=== PATIENT | female | born 1965 | race Caucasian/White ===

== ENCOUNTER 2023-09-19 10:18 | Outpatient (REF) | payer OTHER, SELFPAY ==
--- NOTE | 2023-09-19 10:22 | EMG_ITS ---
Chief complaint: At least 6 months of right foot numbness, feeling of sleeping right foot when walking. She also has back pain. Reason for referral: Evaluate for neuropathy Referred by: Dr. Romel Brown Procedure done: Right lower extremity NCS/EMG Precautions and/or limitations: None The limb temperature was monitored continuously and remained between 32-36 degrees C during the performance of the NCS. Nerve Conduction Studies Anti Sensory Summary Table ?Stim Site NR Onset (ms) Norm Onset (ms) Peak (ms) Norm Peak (ms) O-P Amp (?V) Norm O-P Amp Site1 Site2 Delta-0 (ms) Dist (cm) César (m/s) Norm César (m/s) Right Sup Peron Anti Sensory (Ankle) Lateral Leg ? 2.1 3.0 <4.4 0.5 >5.0 Lateral Leg Ankle 2.1 14.0 67 Right Sural Anti Sensory (Lat Mall) Calf ? 1.4 2.0 11.7 Motor Summary Table ?Stim Site NR Onset (ms) Norm Onset (ms) O-P Amp (mV) Norm O-P Amp iAmp (mV) Amp (1st) (%) Site1 Site2 Delta-0 (ms) Dist (cm) César (m/s) Norm César (m/s) Right Peroneal Motor (Ext Dig Brev) Ankle ? 3.9 <4.0 7.1 >2.5 9.3 100.0 Ankle Ext Dig Brev 3.9 0.0 B Fib ? 9.9 6.7 8.4 94.4 B Fib Ankle 6.0 31.0 52 >40 Poplt ? 10.4 7.0 10.5 98.6 Poplt B Fib 0.5 4.5 90 >40 Right Tibial Motor (Abd Brev) Ankle ? 3.3 <5 2.7 >2.5 3.8 100.0 Ankle Abd Brev 3.3 0.0 Knee ? 9.8 2.2 3.2 81.5 Knee Ankle 6.5 37.0 57 >40 EMG ?Side Muscle Nerve Root Ins Act Fibs Psw Amp Dur Poly Recrt Int Pat Comment Right AbdHallucis MedPlantar S1-2 Nml Nml Nml Nml Nml 0 Nml Complete Right AntTibialis Dp Br Peron L4-5 Nml Nml Nml Nml Nml 0 Nml Complete Right PostTibialis Tibial L5, S1 Nml Nml Nml Nml Nml 0 Nml Complete Right MedGastroc Tibial S1-2 Nml Nml Nml Nml Nml 0 Nml Complete Right VastusMed Femoral L2-4 Nml Nml Nml Nml Nml 0 Nml Complete FINDINGS: Right superficial peroneal nerve showed small amplitude. Right peroneal motor nerve did not show slowing or conduction block across the fibula neck. Concentric needle EMG was performed in selected muscles of the right lower extremity. Study did not reveal signs of electric abnormalities as shown in the table below. IMPRESSION: 1. 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 3. There is no electrodiagnostic evidence for tibial neuropathy. lumbosacral plexopathy, lumbar radiculopathy, or peripheral neuropathy. CLINICAL COMMENT: An isolated superficial peroneal neuropathy is rare. Consider repeat testing in 6 months. Thank you for your kind referral. iLlli Kesy MD, [facility] Board Certified, [place] [employer] and [employer] (ABPMR) Board Certified, [place] [employer] Electro[employer] (ABEM) [facility] [id number] [facility]
== END 2023-09-19 10:19 | disposition home or self-care (01) ==
LOC: HO.NEURO 10:18
PROVIDERS: Visit Provider Internal Medicine
DX: R20.0 Anesthesia of skin (principal)
CPT/HCPCS: 95886; 95908

== ENCOUNTER → 2023-09-19 10:22 | Outpatient (BNV) | payer OTHER, SELFPAY | PROVIDERS: Visit Provider Physical Medicine & Rehabilitation | DX: G57.31 Lesion of lateral popliteal nerve, right lower limb (principal) | CPT/HCPCS: 95886; 95908 ==